=== PATIENT | male | born 1960 | race Caucasian/White ===

== ENCOUNTER 2017-04-05 22:03 | Emergency (ER) | payer OTHER ==
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
[2017-04-05] MEDS ORDERED: ORPHENADRINE CITRATE 60 MG/2ML IM ONE (22:33)
[2017-04-05 23:30] VITALS: BP 150/110
[2017-04-05] MEDS ORDERED: IBUPROFEN 400 MG TABLET PO ONE (23:35)
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
== END 2017-04-05 23:28 | disposition home or self-care (01) ==
LOC: ED 22:03
DX: M54.9 Dorsalgia, unspecified (principal); V89.2XXA Person injured in unspecified motor-vehicle accident, traffic, initial encounter
CPT/HCPCS: 72072; 73130; J2360; 96372; 99283